=== PATIENT | male | born 1960 | race Hispanic/Latino ===

== ENCOUNTER 2021-06-04 09:22 | Emergency (ER) | payer BC, OTHER ==
[~2021-06-04] VITALS: Ht 175.3 cm; Wt 136.1 kg
[2021-06-04] MEDS ORDERED: LIDOCAINE HCL 400MG/20ML VIAL ONE (09:40)
[2021-06-04] MEDS ORDERED: TETANUS/DIPHTHERIA TOXOID [ADULT] 0.5 ML VIAL IM ONE (10:26)
[2021-06-04] MEDS ORDERED: HYDROCODONE/ACETAMINOPHEN 5/325 MG TAB PO SCH (10:30)
[2021-06-04] MEDS ORDERED: BACITRACIN 28.4 GM OINT TP SCH (10:30)
[2021-06-04] MEDS ORDERED: DIPH,PERTUSS(ACELL),TET VAC/PF 0.5 ML VIAL IM ONE (10:30)
[2021-06-04] MEDS ORDERED: AMOX/CLAV 875/125MG TAB PO ONE (10:30)
[2021-06-04] MEDS ORDERED: ACET1TAB25 PO (10:41)
[2021-06-04] MEDS ORDERED: AMOX-429 PO (10:41)
[2021-06-04 11:04] VITALS: BP 104/54
== END 2021-06-04 11:21 | disposition home or self-care (01) ==
LOC: EDH 09:22
DX: S01.01XA Laceration without foreign body of scalp, initial encounter (principal); I10 Essential (primary) hypertension; E78.00 Pure hypercholesterolemia, unspecified; E11.9 Type 2 diabetes mellitus without complications; F17.200 Nicotine dependence, unspecified, uncomplicated; Z96.652 Presence of left artificial knee joint; W20.8XXA Other cause of strike by thrown, projected or falling object, initial encounter; Y93.89 Activity, other specified; Y92.89 Other specified places as the place of occurrence of the external cause; Y99.8 Other external cause status
CPT/HCPCS: 12004; 82948; 90471; 90714; 99284; J3490; 90715

== ENCOUNTER → 2024-01-14 | Outpatient (CLI) | payer BC ==
[~2024-01-14] MED LIST: ACET-2079 PO; AMOX-429 PO
== END | disposition home or self-care (01) ==
LOC: RAH 11:10
PROVIDERS: ATTEND Nurse Practitioner Family
DX: M47.817 Spondylosis without myelopathy or radiculopathy, lumbosacral region (principal); M43.17 Spondylolisthesis, lumbosacral region; M51.27 Other intervertebral disc displacement, lumbosacral region
CPT/HCPCS: 72148